=== PATIENT | male | born 1990 | race Caucasian/White ===

== ENCOUNTER 2021-08-20 00:51 | Emergency (ER) | payer SELFPAY ==
[~2021-08-20] VITALS: Ht 188 cm; Wt 74.8 kg
--- NOTE | 2021-08-20 02:28 | NUR ---
DR. GRAMAJO AT BEDSIDE, MSE IN PROGRESS.
--- NOTE | 2021-08-20 02:45 | NUR ---
LAB AT BEDSIDE.
[2021-08-20 02:57] LABS: HEMATOCRIT 41.8 % (36.7-47.1); MEAN CORPUSCULAR HEMOGLOBIN 30.9 uug (23.8-33.4); PLATELET COUNT (AUTO) 199 K/uL (152-348)
[2021-08-20 03:17] LABS: CREATININE 1.1 mg/dL (0.6-1.3); POTASSIUM 3.8 mmol/L (3.5-5.1)
[2021-08-20 03:33] LABS: BILIRUBIN,DIRECT 0.1 mg/dL (0.0-0.2); BILIRUBIN,TOTAL 0.2 mg/dL (0.2-1.0); TOTAL PROTEIN, SERUM 6.8 g/dL (6.4-8.2)
[2021-08-20] MEDS ORDERED: DICY10CA13 PO (04:50)
--- NOTE | 2021-08-20 04:59 | NUR ---
Patient discharged to home in stable condition. Written and verbal after care instructions given. Patient verbalizes understanding of instructions. Stressed follow up or return to ER for worsening s/s. Steady gait, denies any pain/discomfort. No changes in LOC. Denies any n/v/d.
[2021-08-20 05:00] VITALS: BP 120/72
[2021-08-20 05:45] LABS: *BILIRUBIN,URIN NEGATIVE (NEGATIVE); *CLARITY,URINE CLEAR (CLEAR); *COLOR,URINE YELLOW (YELLOW); *KETONES,URINE NEGATIVE (NEGATIVE); *UROBILINOGEN,URINE 0.2 E.U./dl (NORMAL); LEUKOCYTE ESTERASE ,URINE NEGATIVE (NEGATIVE); NITRITE, URINE NEGATIVE (NEGATIVE); PH,URINE 6.5 (5.0-8.0); UGLUCOSE NEGATIVE (NEGATIVE)
[2021-08-20 05:46] LABS: *BLOOD, URINE TRACE (NEGATIVE)
[2021-08-20 05:51] LABS: BACTERIA,URINE NONE SEEN /HPF (NONE SEEN); RBC,URINE 0-3 /HPF (0-3); SQUAMOUS EPITHELIAL CELL,UR FEW /HPF (NONE SEEN); WBC,URINE NONE SEEN /HPF (0-3)
== END 2021-08-20 05:01 | disposition home or self-care (01) ==
LOC: ER 00:57
DX: R19.7 Diarrhea, unspecified (principal); F31.9 Bipolar disorder, unspecified
CPT/HCPCS: 36415; 83690; 85025; A4663